=== PATIENT | male | born 1940 | race Caucasian/White ===

== ENCOUNTER 2024-02-26 12:22 | Emergency (ER) | payer MEDICARE, OTHER ==
[2024-02-26] MEDS ORDERED: Bacitracin 1 PK ONE (14:19)
== END 2024-02-26 14:35 | disposition home or self-care (01) ==
LOC: MADERS 12:22
DX: S51.812A Laceration without foreign body of left forearm, initial encounter (principal); I25.10 Atherosclerotic heart disease of native coronary artery without angina pectoris; Z87.891 Personal history of nicotine dependence; Z95.1 Presence of aortocoronary bypass graft; Z79.01 Long term (current) use of anticoagulants; W26.8XXA Contact with other sharp object(s), not elsewhere classified, initial encounter
CPT/HCPCS: 70450